=== PATIENT | female | born 1950 | race Caucasian/White ===

== ENCOUNTER 2021-06-23 11:34 | Inpatient (IN) ==
[2021-06-23] MEDS ORDERED: PANTOPRAZOLE 40 MG VIAL IV STA (14:42)
[2021-06-23] MEDS ORDERED: SODIUM CHLORIDE 0.9% 500 ML IV STA (14:42)
[2021-06-23 15:50] LABS: Basophils # 0.1 10*3/uL (0.0-0.2); Basophils % 0.3 % (0.0-0.8); Eosinophils # 0.1 10*3/uL (0.0-0.87); Eosinophils % 0.2 % (0.00-10.9); Hematocrit 28.3 VOL% (35.7-47.0); Hemoglobin 9.2 GM/DL (12.0-16.0); Immature Granulocytes % 0.9 %; Immature Granulocytes Absolute 0.21 #; Lymphocytes # 1.5 10*3/uL (1.4-4.0); Lymphocytes % 6.5 % (21.3-54.2); Mean Corpuscular HGB Conc 32.5 GM/DL (32-36); Mean Corpuscular Volume 92.8 FL (87-102); Mean Platelet Volume 8.6 FL (9.6-12.0); Neutrophils % 84.1 % (38.7-73.9); Platelet Count 578 T/CUMM (130-400); Red Blood Count 3.05 MC/CUMM (3.8-5.5); Red Cell Distribution Width 13.3 % (9.3-17.3); White Blood Count 22.7 T/CUMM (4-12)
[2021-06-23 16:02] LABS: INR 1.1; PT Patient Result 12.5 SECS (10.5-12.0); Partial Thromboplastin Time 27.7 SECS (23.8-32.1)
[2021-06-23 16:11] LABS: Alanine Aminotransferase 35 U/L (13-56); Albumin 2.2 G/DL (3.4-5.0); Alkaline Phosphatase 165 U/L (45-117); Aspartate Amino Transferase 24 U/L (0-37); Bilirubin,Total < 0.39 MG/DL (0.20-1.00); Blood Urea Nitrogen 26 MG/DL (7-18); Calcium 9.2 MG/DL (8.5-10.1); Carbon Dioxide 27 MMOL/L (21-32); Estimated Glom Filtration Rate 44 ML/MIN; Glucose 107 MG/DL (74-106); Osmolality,Calculated 274.1 MOS/KG (273-304); Potassium 4.2 MMOL/L (3.5-5.1); Sodium 135 MMOL/L (136-145); Total Protein 8.1 G/DL (6.4-8.2)
[2021-06-23 16:17] LABS: Band Neutrophils 1 % (0-10); Eosinophils 1 % (0-10); Lymphocytes 5 % (20-55); Platelet Estimate Increased; Polychromasia Few; Segmented Neutrophils 87 % (50-85); Total Cells Counted 100
[2021-06-23] MEDS ORDERED: cefTRIAXone 2,000 MG in SODIUM CHLORIDE 0.9% 100 ML IV ONE (16:33)
[2021-06-23] MEDS ORDERED: ONDANSETRON 4 MG/2 ML VIAL IV PRN (16:37)
[2021-06-23] MEDS ORDERED: ACETAMINOPHEN 325 MG TABLET PO PRN (16:37)
[2021-06-23] MEDS ORDERED: cefTRIAXone 1,000 MG VIAL ONE (16:45)
[2021-06-23] MEDS: AZITHROMYCIN INJ 500 MG in SODIUM CHLORIDE 0.9% 250 ML IV SCH (19:35)
[2021-06-23] MEDS: SODIUM CHLORIDE 0.45% 1,000 ML IV SCH (19:35)
[2021-06-23 19:56] LABS: Bilirubin,Urine Negative (Negative); Blood, Urine Negative (Negative); Glucose,Urine (UA) Negative (Negative); Hyaline Casts,Urine 4 /LPF (0-3); Ketones,Urine 5 mg/dL (Negative); Mucus,Urine Occasional /LPF (Occasional); Nitrite,Urine Negative (Negative); Protein,Urine 30 MG/DL; RBC,Urine 10 /HPF (0-4); Squamous Epithelial Cell,Urine Occasional /HPF (0-10); Urine Appearance Slightly Hazy (Clear); Urine Color Yellow (Yellow); Urine Specific Gravity 1.024 (1.001-1.035); Urine Urobilinogen < 2.0 EU/DL (<2.0)
[2021-06-23 20:57] LABS: Basophils # 0.1 10*3/uL (0.0-0.2); Basophils % 0.4 % (0.0-0.8); Eosinophils # 0.1 10*3/uL (0.0-0.87); Eosinophils % 0.3 % (0.00-10.9); Hematocrit 28.1 VOL% (35.7-47.0); Hemoglobin 9.1 GM/DL (12.0-16.0); Immature Granulocytes % 0.7 %; Immature Granulocytes Absolute 0.15 #; Lymphocytes # 1.1 10*3/uL (1.4-4.0); Lymphocytes % 4.8 % (21.3-54.2); Mean Corpuscular HGB Conc 32.4 GM/DL (32-36); Mean Platelet Volume 8.5 FL (9.6-12.0); Monocytes % 7.5 % (1.7-12.7); Neutrophils % 86.3 % (38.7-73.9); Platelet Count 500 T/CUMM (130-400); Red Blood Count 3.02 MC/CUMM (3.8-5.5); Red Cell Distribution Width 13.4 % (9.3-17.3); White Blood Count 22.9 T/CUMM (4-12)
[2021-06-23] MEDS: FERROUS SULFATE 325 MG TABLET PO SCH (21:52)
[2021-06-23] MEDS: ENOXAPARIN 40 MG/0.4 ML SYRINGE SUBCUT SCH (21:52)
[2021-06-23] MEDS: DOCUSATE SODIUM 100 MG CAPSULE PO SCH (21:52)
[2021-06-24] MEDS: TEMAZEPAM 15 MG CAPSULE PO SCH ×2 (03:39→20:19)
[2021-06-24 06:39] LABS: Basophils # 0.1 10*3/uL (0.0-0.2); Basophils % 0.3 % (0.0-0.8); Eosinophils % 0.1 % (0.00-10.9); Hematocrit 27.1 VOL% (35.7-47.0); Hemoglobin 8.7 GM/DL (12.0-16.0); Immature Granulocytes % 0.7 %; Immature Granulocytes Absolute 0.15 #; Lymphocytes # 1.5 10*3/uL (1.4-4.0); Lymphocytes % 7.2 % (21.3-54.2); Mean Corpuscular HGB Conc 32.1 GM/DL (32-36); Mean Corpuscular Volume 92.5 FL (87-102); Monocytes % 9.1 % (1.7-12.7); Neutrophils % 82.6 % (38.7-73.9); Platelet Count 512 T/CUMM (130-400); Red Blood Count 2.93 MC/CUMM (3.8-5.5); Red Cell Distribution Width 13.4 % (9.3-17.3); White Blood Count 20.6 T/CUMM (4-12)
[2021-06-24] MEDS: SODIUM CHLORIDE 0.45% 1,000 ML IV SCH ×4 (07:04→17:29)
[2021-06-24 07:52] LABS: Alanine Aminotransferase 30 U/L (13-56); Albumin 1.8 G/DL (3.4-5.0); Alkaline Phosphatase 166 U/L (45-117); Aspartate Amino Transferase 25 U/L (0-37); Bilirubin,Total < 0.39 MG/DL (0.20-1.00); Blood Urea Nitrogen 23 MG/DL (7-18); Calcium 8.7 MG/DL (8.5-10.1); Carbon Dioxide 23 MMOL/L (21-32); Estimated Glom Filtration Rate 72 ML/MIN; Glucose 92 MG/DL (74-106); Potassium 3.8 MMOL/L (3.5-5.1); Sodium 136 MMOL/L (136-145); Total Protein 6.9 G/DL (6.4-8.2)
[2021-06-24] MEDS: PANTOPRAZOLE 40 MG TABLET PO SCH (11:00)
[2021-06-24] MEDS: FERROUS SULFATE 325 MG TABLET PO SCH ×2 (11:00→20:19)
[2021-06-24] MEDS: CHOLECALCIFEROL 1,000 UNIT TABLET PO SCH (11:00)
[2021-06-24] MEDS: ROSUVASTATIN 10 MG TABLET PO SCH (11:00)
[2021-06-24] MEDS: DOCUSATE SODIUM 100 MG CAPSULE PO SCH ×2 (11:07→20:19)
[2021-06-24] MEDS: AZITHROMYCIN INJ 500 MG in SODIUM CHLORIDE 0.9% 250 ML IV SCH (18:33)
[2021-06-24] MEDS: ENOXAPARIN 40 MG/0.4 ML SYRINGE SUBCUT SCH (20:20)
[2021-06-25] MEDS: SODIUM CHLORIDE 0.45% 1,000 ML IV SCH ×4 (03:04→22:45)
[2021-06-25 08:48] LABS: Basophils # 0.1 10*3/uL (0.0-0.2); Basophils % 0.4 % (0.0-0.8); Eosinophils # 0.1 10*3/uL (0.0-0.87); Eosinophils % 0.4 % (0.00-10.9); Hematocrit 25.4 VOL% (35.7-47.0); Hemoglobin 8.2 GM/DL (12.0-16.0); Immature Granulocytes % 1.1 %; Immature Granulocytes Absolute 0.17 #; Lymphocytes % 6.5 % (21.3-54.2); Mean Corpuscular HGB Conc 32.3 GM/DL (32-36); Mean Platelet Volume 8.5 FL (9.6-12.0); Monocytes % 8.6 % (1.7-12.7); Platelet Count 413 T/CUMM (130-400); Red Blood Count 2.76 MC/CUMM (3.8-5.5); Red Cell Distribution Width 13.5 % (9.3-17.3)
[2021-06-25 09:08] LABS: Albumin (SPE) Rel % 42.8 %; Alpha 1 (SPE) 0.6 G/DL (0.1-0.4); Alpha 1 (SPE) Rel % 7.9 %; Alpha 2 (SPE) 1.5 G/DL (0.4-1.0); Alpha 2 (SPE) Rel % 21.8 %; Beta (SPE) Rel % 14.7 %; Gamma (SPE) 0.9 G/DL (0.7-1.7); Gamma (SPE) Rel % 12.8 %
[2021-06-25] MEDS: FERROUS SULFATE 325 MG TABLET PO SCH ×2 (09:24→20:28)
[2021-06-25] MEDS: CHOLECALCIFEROL 1,000 UNIT TABLET PO SCH (09:24)
[2021-06-25] MEDS: PANTOPRAZOLE 40 MG TABLET PO SCH (09:24)
[2021-06-25] MEDS: ROSUVASTATIN 10 MG TABLET PO SCH (09:24)
[2021-06-25] MEDS: DOCUSATE SODIUM 100 MG CAPSULE PO SCH ×2 (09:26→20:28)
[2021-06-25] MEDS: AZITHROMYCIN INJ 500 MG in SODIUM CHLORIDE 0.9% 250 ML IV SCH (18:19)
[2021-06-25] MEDS: TEMAZEPAM 15 MG CAPSULE PO SCH (20:28)
[2021-06-25] MEDS: ENOXAPARIN 40 MG/0.4 ML SYRINGE SUBCUT SCH (20:28)
[2021-06-26] MEDS: SODIUM CHLORIDE 0.45% 1,000 ML IV SCH ×4 (00:14→18:19)
[2021-06-26] MEDS: FERROUS SULFATE 325 MG TABLET PO SCH ×2 (08:30→21:56)
[2021-06-26] MEDS: CHOLECALCIFEROL 1,000 UNIT TABLET PO SCH (08:31)
[2021-06-26] MEDS: PANTOPRAZOLE 40 MG TABLET PO SCH (08:31)
[2021-06-26] MEDS: ROSUVASTATIN 10 MG TABLET PO SCH (08:31)
[2021-06-26] MEDS: DOCUSATE SODIUM 100 MG CAPSULE PO SCH ×2 (08:33→21:56)
[2021-06-26] MEDS: AZITHROMYCIN INJ 500 MG in SODIUM CHLORIDE 0.9% 250 ML IV SCH (18:01)
[2021-06-26] MEDS: ENOXAPARIN 40 MG/0.4 ML SYRINGE SUBCUT SCH (21:56)
[2021-06-26] MEDS: TEMAZEPAM 15 MG CAPSULE PO SCH (21:56)
[2021-06-27] MEDS: SODIUM CHLORIDE 0.45% 1,000 ML IV SCH ×2 (02:26→10:55)
[2021-06-27 08:12] VITALS: BP 115/84
[2021-06-27] MEDS: FERROUS SULFATE 325 MG TABLET PO SCH (08:37)
[2021-06-27] MEDS: CHOLECALCIFEROL 1,000 UNIT TABLET PO SCH (08:38)
[2021-06-27] MEDS: PANTOPRAZOLE 40 MG TABLET PO SCH (08:38)
[2021-06-27] MEDS: ROSUVASTATIN 10 MG TABLET PO SCH (08:38)
[2021-06-27] MEDS: DOCUSATE SODIUM 100 MG CAPSULE PO SCH (08:38)
[2021-06-27 09:12] LABS: Basophils # 0.1 10*3/uL (0.0-0.2); Basophils % 0.6 % (0.0-0.8); Eosinophils # 0.2 10*3/uL (0.0-0.87); Eosinophils % 1.6 % (0.00-10.9); Hematocrit 26.5 VOL% (35.7-47.0); Hemoglobin 8.5 GM/DL (12.0-16.0); Immature Granulocytes % 0.8 %; Lymphocytes # 1.2 10*3/uL (1.4-4.0); Lymphocytes % 9.1 % (21.3-54.2); Mean Corpuscular HGB Conc 32.1 GM/DL (32-36); Mean Corpuscular Volume 91.1 FL (87-102); Mean Platelet Volume 8.6 FL (9.6-12.0); Monocytes % 8.6 % (1.7-12.7); Neutrophils % 79.3 % (38.7-73.9); Platelet Count 420 T/CUMM (130-400); Red Blood Count 2.91 MC/CUMM (3.8-5.5); Red Cell Distribution Width 13.3 % (9.3-17.3); White Blood Count 12.7 T/CUMM (4-12)
== END 2021-06-27 10:59 | disposition home or self-care (01) | DRG 194 ==
LOC: N.ED 11:34 → N.EDINP 16:37 → N.5E 20:15 → N.TELEN 06-24 16:48
PROVIDERS: ADMIT Family Medicine; ATTEND Family Medicine